=== PATIENT | male | born 1960 | race Caucasian/White ===

== ENCOUNTER 2016-10-25 20:32 | Emergency (ER) | payer BC ==
[2016-10-25 20:46] VITALS: BP 170/74; PULSE 66; RESP 16; TEMP 97.7; O2SAT 97
--- NOTE | 2016-10-25 21:05 | UCPHY ---
H & P Patient Type: New HPI/ROS: Chief complaint. Sore throat HPI. 56-year-old male sore throat for 1 day. Slightly worse on the left. Increased pain with swallowing. However speaking normally and able to swallow and drink. No known exposure to Infectious Disease. No fever. Slight nasal congestion. No rash, cough, shortness of breath. No abdominal pain or vomiting. ROS Constitutional. no fever/chills, no weakness Eyes. no problems with vision ENT. Sore throat and nasal congestion Cardiovascular. no chest pain Respiratory. no shortness of breath, no cough Abdominal. no abdominal pain, no nausea/vomiting, no diarrhea . no problems urinating MS. no calf pain/swelling, no neck/back pain, no joint pain Skin. no rash Lymph. no swollen glands Neuro. no headache, no dizziness, no difficulty walking or with speech Past Medical/Surgical History: Hypertension, bipolar illness, appendectomy, hypothyroid, dyslipidemia Social History: , nonsmoker, no alcohol Smoking Status: Never smoked Physical Exam: General Appearance: Alert pleasant well-developed male mild distress vital signs are stable. Afebrile Eyes: Pupils equal and round no pallor or injection. ENT, tympanic membranes are normal. Pharynx mildly injected without exudate. Slightly more red on the left but no evidence for peritonsillar abscess Respiratory: There are no retractions, lungs are clear to auscultation. Cardiovascular: Regular rate and rhythm. Gastrointestinal: Abdomen is soft and nontender, no masses, bowel sounds normal. Neurological: Awake and alert, sensory and motor exams grossly normal. Skin: Warm and dry, no rashes. Musculoskeletal: Neck is supple nontender. Extremities symmetrical, full range of motion. Psychiatric: Patient is oriented X 3, there is no agitation. Constitutional: Initial Vital Signs Temperature (C) 36.5 C 10/25/16 20:43 Heart Rate 66 10/25/16 20:43 Respiratory Rate 16 10/25/16 20:43 Blood Pressure 170/74 H 10/25/16 20:43 O2 Sat (%) 97 10/25/16 20:43 O2 Delivery Mode Room Air Allergies/Adverse Reactions: No Known Allergies Allergy (Unverified 10/25/16 20:41) Home Medications: Medication Instructions Recorded Brexpiprazole [Rexulti] 10/25/16 Divalproex [Depakote] 10/25/16 Levothyroxine [Synthroid 88 mcg 10/25/16 (*)] Penicillin V Potassium [Penicillin 500 mg PO TID #21 tab 10/25/16 VK] SIMVASTATIN 10/25/16 clonAZEPAM [CLONAZEPAM] 10/25/16 Medical Decision Making Procedures: Decadron by mouth ED Course/Re-evaluation: Strep screen negative Re-evaluation at 9:20 p.m.. Patient is stable. The patient and I discussed strep screen results, treatment plan including criteria for return importance of follow-up and further evaluation. He expresses understanding and agreement Differential Diagnosis: I considered viral versus bacterial pharyngitis. Considered strep pharyngitis. - Data Points Laboratory Results: 10/25/16 10/25/16 Unknown 20:50 Group A Strep Screen NEGATIVE (NEGATIVE) Group A Strep DNA Pending Departure - Departure Disposition: Home, Routine, Self-Care Clinical Impression: Pharyngitis Qualifiers: Pharyngitis/tonsillitis etiology: unspecified etiology Qualifier Code: (J02.9) Acute pharyngitis, unspecified Condition: Good Instructions: Pharyngitis (ED) Additional Instructions: Drink plenty of fluids and stay hydrated. 1000 mg every 4-6 hours as needed for discomfort. Return for worsening pain, fever, swallowing. Recheck in 2-3 days if not improving Referrals: Sim Benitez MD [Primary Care Provider] - 2-3 days, if not improved Prescriptions: Penicillin V Potassium [Penicillin VK] 500 mg PO TID #21 tab - PQRS PQRS Measurement: 134: Depression screening and followup, PRIME MD-PHQ2 (12 years and older) Over the last 2 weeks, how often have you been bothered by any of the following problems? 1. Feeling down, depressed, or hopeless? 2. Little interest or pleasure in doing things? 130: Documentation of medications. Reviewed all patient medications, doses, route and frequency. 226: Do you smoke? No.
[2016-10-25] MEDS ORDERED: DEXAMETHASONE 4 MG TAB PO ONE (21:12)
== END 2016-10-25 21:32 | disposition home or self-care (01) ==
LOC: CED 20:32
DX: J02.9 Acute pharyngitis, unspecified (principal); I10 Essential (primary) hypertension; F31.9 Bipolar disorder, unspecified; E03.9 Hypothyroidism, unspecified; E78.5 Hyperlipidemia, unspecified
CPT/HCPCS: 87880-PO; 99203-PO; G0463-PO